=== PATIENT | female | born 1975 | race Caucasian/White ===

== ENCOUNTER 2017-03-26 15:32 | Emergency (ER) | payer OTHER, MEDICAID ==
--- NOTE | ~2017-03-26 | CT4 ---
[facility] A Service of [facility] RADIOLOGY TEXT RESULTS PATIENT: STEWART MORALES LOCATION: SED : 77 UNIT #: [id number] AGE: [address]: Esau Wilkins MD SEX: F ORDER DR: [id number] [place] [id number] MR#: [id number] Acc #: [id number] NAME: STEWART MORALES. : 1975 SEX: F STUDY DATE/TIME: 03/26/2017 15:44 UNIT: SED ROOM: STUDY DESCRIPTION: CT Abd and Pelv Wo Cont Attending Physician: Esau Wilkins M.D. Ordering Physician: Esau Wilkins M.D. Primary Care Physician: Sapna Pruitt M.D. MEDICAL IMAGING REPORT This report is preliminary unless electronic signature is present. EXAM CT scan of the abdomen and pelvis without contrast. DATE OF EXAM 03/26/2017 HISTORY Bilateral flank pain, kidney pain with nausea and vomiting beginning this morning. Diabetes. History of kidney stones. Evaluate for obstructing renal calculus. TECHNIQUE Spiral CT was performed through the abdomen and pelvis without oral or intravenous contrast administration using renal stone protocol. This CT exam was performed with one or more of the following radiation dose reduction techniques: automatic exposure control, adjustment of mA and/or kV according to patient size, and iterative reconstruction. FINDINGS ABDOMEN: There is no obstructing renal or ureteral calculus. Multiple nonobstructing renal stones are seen bilaterally. The liver, spleen, pancreas, gallbladder and biliary tree and adrenal glands are normal. PELVIS FINDINGS: The gut, mesenteric and ghazala structures are normal. There is no free fluid in the abdomen or pelvis. IMPRESSION 1. No obstructing renal or ureteral calculus. 2. Multiple nonobstructing renal stones bilaterally. Dictated by... Cayden Lemon M.D. [facility] A Service of [facility] RADIOLOGY TEXT RESULTS PATIENT: STEWART MORALES LOCATION: SED : 77 UNIT #: [id number] AGE: [address]: Esau Wilkins MD SEX: F ORDER DR: THIS IS AN ELECTRONICALLY VERIFIED REPORT Cayden Lemon M.D. at 03/27/2017 3:16 PM [facility]/yolis TD: 03/26/2017 19:35 JOB #: [id number] MEDICAL IMAGING REPORT Page 1 of 1
[2017-03-26 15:31] LABS: URINE SOURCE CLEAN CATCH
[~2017-03-26 15:32] MED LIST: ADDERALL XR 3030 M2 PO; ADDERALL XR20 MG PO; AUGMENTIN PO; BACTRIM DS TABL1 TA1 PO; BENTYL20 MG PO; CIPRO PO; COLACE PO; DIFLUCAN PO; DULCOLAX5 MG PO; HUMALOG100 U/M1 SQ; HUMALOG100 U/ML; KEPPRA500 M2 PO; LANTUS100 U/ML SQ; LANTUS100 U/ML SUBQ; LEVEMIR SUBQ; LINZESS145 MCG PO; LOMOTIL WHITE2.5 MG PO; MOBIC PO; NEURONTIN PO; NEURONTIN800 MG; NEURONTIN800 MG DOB; NEURONTIN800 MG PO; NITROFURANTOIN100 M3 PO; NORCO 7.5-3251 EACH PO; NOVOLOG100 U/M1; NOVOLOG100 U/ML; NOVOLOG100 UNITS/ SUBQ; PHENAZOPYRIDIN100 M1 PO; PHENERGAN25 M1 PO; TYLENOL325 M1 PO; VOLTAREN50 MG PO; ZOFRAN PO
[2017-03-26 15:36] LABS: BASOPHIL% 0.3 % (0-2.5); EOSINOPHIL% 0.3 % (0.0-7.0); HEMATOCRIT 40.9 % (35.0-45.0); HEMOGLOBIN 13.8 gm/dL (12.0-16.0); LYMPHOCYTE# 1.3 X10e3 (1.0-3.5); LYMPHOCYTE% 11.8 % (17.0-45.0); MEAN CELL VOLUME 90.4 FL (83-96); MEAN CORPUSCULAR HEMOGLOBIN 30.5 PG (28-34); MEAN CORPUSCULAR HGB CONC 33.7 g/dL (30-36); MEAN PLATELET VOLUME 9.5 FL (6.5-11.5); MONOCYTE# 0.4 X10e3 (0-1.0); MONOCYTE% 3.6 % (3.0-12.0); NEUTROPHIL# 9.1 X10e3 (1.5-7.1); PLATELET COUNT 279 X10e3 (140-420); RED BLOOD COUNT 4.52 X10e (3.90-5.30); RED CELL DISTRIBUTION WIDTH 13.1 % (11.0-15.5); WHITE BLOOD COUNT 10.8 X10e3 (4.0-10.5)
[2017-03-26 15:37] LABS: URINE APPEARANCE CLOUDY; URINE BILIRUBIN NEG (NEG); URINE BLOOD 2+ (NEG); URINE COLOR YELLOW; URINE GLUCOSE NEG (NORM); URINE KETONE NEG (NEG); URINE LEUKOCYTE ESTERASE 3+ (NEG); URINE NITRATE POS (NEG); URINE PH 8.5 (5-8); URINE PROTEIN 2+ (NEG)
[2017-03-26 15:40] LABS: MICRO INDICATED? YES
[2017-03-26 15:41] LABS: DIFF IND NO
[2017-03-26 15:47] LABS: ALBUMIN SERUM 4.1 g/dL (3.5-5.0); BILIRUBIN, DIRECT 0.2 mg/dL (0.0-0.2); BILIRUBIN,INDIRECT 0.7 mg/dL (0.0-0.9); BILIRUBIN,TOTAL 0.9 mg/dL (0.2-2.0); BUN/CREATININE RATIO 21.25; CALCIUM SERUM 9.8 mg/dL (8.4-10.2); CREATININE SERUM 0.8 mg/dL (0.6-1.4); POTASSIUM 3.7 mmol/L (3.5-5.1); PROTEIN TOTAL SERUM 7.9 g/dL (6.0-8.3)
[2017-03-26 15:51] LABS: URINE TRANSITIONAL EPI CELLS MODERATE /[HPF]
[2017-03-26 15:52] LABS: CULTURE INDICATED? YES; URINE BACTERIA 2+ (NEG); URINE WBC 200-300 /[HPF] (0-5)
== END 2017-03-26 16:45 | disposition home or self-care (01) ==
LOC: SED 15:32
PROVIDERS: Emergency Medicine
DX: N39.0 Urinary tract infection, site not specified (principal); E11.9 Type 2 diabetes mellitus without complications; Z79.4 Long term (current) use of insulin; Z87.442 Personal history of urinary calculi; Z79.899 Other long term (current) drug therapy
CPT/HCPCS: 36415; 74176; 80048; 80076; 81003; 83690; 84703; 85025; 87086; 87088; 87186; 96361; 96374; 96375; 99284; J1885; J2405

== ENCOUNTER 2017-07-03 10:54 | Inpatient (IN) | payer OTHER ==
[~2017-07-03] VITALS: Ht 165.1 cm; Wt 62.5 kg
--- NOTE | ~2017-07-03 | CO ---
Unit #: [id number] #: [id number] Patient: STEWART MORALES [id number] [address] [address] [id number] I MR#: [id number] NAME: STEWART MORALES. ROOM: [facility] Age: 41 Sex: F Admission Date: 07/03/2017 : 1975 Attending Physician: Danica Francis M.D. Primary Care Physician: Sapna Pruitt M.D. Consultation Date: 07/04/2017 CONSULTATION REPORT REASON FOR CONSULTATION Management of diabetes, ketoacidosis. HISTORY OF PRESENT ILLNESS This is a 41-year-old white female who has a history of type 1 diabetes mellitus for several years. She is on multiple daily injections. She reports that she started having some nausea and vomiting and got sick to the stomach on Tuesday. Blood sugars were running very high. On arriving in the emergency room she was found to have blood sugar of 792 with hyponatremia, hyperkalemia and severe metabolic acidosis. She did have positive ketones. She was started on IV hydration and insulin drip and was transferred to the unit. I was asked to see the patient. PAST MEDICAL HISTORY See history of present illness. PAST SURGICAL HISTORY 1. . 2. Knee surgery. 3. Hand surgery. SOCIAL HISTORY The patient lives at home. Declines tobacco and alcohol. FAMILY HISTORY Noncontributory. ALLERGIES No known drug allergies. HOME MEDICATIONS 1. Adderall XR 20 mg twice a day. 2. NovoLog one unit 10 g carbohydrates plus 1 unit for every 10 mg blood sugars above 240. 3. Neurontin 800 mg three times a day. 4. Levemir 30 units every morning and 35 units every evening. REVIEW OF SYSTEMS The patient reports she is still having some nausea, very tired and worn out. She has no diarrhea. No fever or chills. No chest pain or palpitations. She denies any history of frequency or dysuria. PHYSICAL EXAMINATION GENERAL: She is lying comfortably, in no acute distress. She looks very Unit #: [id number] #: [id number] Patient: STEWART MORALES weak and lethargic. VITALS: Temperature 99.2, pulse 90, blood pressure 130/74. HEENT: Extraocular muscles intact. Pupils equal and reactive to light. NECK: Supple. No thyromegaly noted. CHEST: Good air entry. HEART: Regular rate and rhythm. No murmurs. ABDOMEN: Soft and nontender. Bowel sounds positive. EXTREMITIES: No edema noted. NEUROLOGIC: Nonfocal. DIAGNOSTIC STUDIES LABORATORY: Reviewed. Current labs are creatinine 0.7, sodium 136, potassium 3.3, CO2 19, calcium 8.3, phos 1.2, albumin 4.4. ASSESSMENT 1. Diabetes, ketoacidosis, improved. 2. Hypokalemia. 3. Hypophosphatemia. 4. Acute kidney injury, resolved. 5. Dehydration, improved. PLAN Will start the patient on Levemir 30 units 1 dose now, followed by 15 units subcutaneous b.i.d. Discontinue insulin drip. Advance diet as tolerated. Accu-Cheks q.4 h. Will continue IV fluids today. Discontinue IV fluids in the morning if the patient tolerates her consistent carb diet. Replace potassium and phosphorus with K-phos. Continue magnesium and potassium protocol per ICU. Will continue to follow the patient for further management. Dictated by... Juan Keene/stefania TD: 07/05/2017 08:45 JOB #: [id number] CONSULTATION REPORT Page 1 of 1 X Omega Colon MD CONSULTATION REPORT
--- NOTE | ~2017-07-03 | DS ---
Unit #: [id number] #: [id number] Patient: STEWART MORALES [id number] [address] [address] [id number] I MR#: [id number] NAME: STEWART MORALES. ROOM: 220 Age: 41 Sex: F Admission Date: 07/03/2017 : 1975 Discharge Date: 07/06/2017 Attending Physician: Danica Francis M.D. Primary Care Physician: Sapna Pruitt M.D. DISCHARGE SUMMARY ADMISSION DIAGNOSES 1. Diabetic ketoacidosis. 2. History of attention deficit hyperactivity disorder. 3. Insulin dependent diabetes. 4. History of multiple admissions for diabetic ketoacidosis previously. DISCHARGE DIAGNOSES 1. Diabetic ketoacidosis, resolved. 2. History of attention deficit hyperactivity disorder. 3. Insulin dependent diabetes. 4. History of multiple admissions for diabetic ketoacidosis previously. CONSULTANTS Endocrinology, Dr. Colon. LABS AND DIAGNOSTIC PROCEDURES Chest x-ray was ordered on admission, which showed no acute findings. HISTORY OF PRESENT HOSPITAL STAY Please refer to H and P done by my colleague for initial presentation of this female. ACTIVE PROBLEMS DIAGNOSED DKA: Was admitted to ICU. Started on DKA protocol with IV fluids and aggressive rehydration. Status post evaluation per endocrinology. DKA resolved. GAP closed. Tolerates p.o. diet without any problems. Transitioned to subcu insulin regime per endocrinology, stable to be discharged. History of insulin dependent diabetes. History of ADHD: Continue home Adderall. DISCHARGE MEDICATIONS 1. Tylenol p.r.n. 2. Adderall 20 mg p.o. b.i.d. 3. Neurontin 800 mg t.i.d. 4. Levemir 20 units subcu b.i.d. 5. NovoLog 5 units subcu t.i.d. with meals. 6. Sliding scale insulin. Patient confirmed that she does have insulin at home. FOLLOWUP She is able to follow up with the primary care physician, Dr. Pruitt in the Unit #: [id number] #: [id number] Patient: STEWART MORALES next day or so, as well as followup with Dr. Colon as an outpatient. Dictated by... Juan Longo/ts TD: 07/07/2017 06:25 JOB #: [id number] DISCHARGE SUMMARY Page 1 of 1 X Eliud Ashby MD DISCHARGE SUMMARY
--- NOTE | ~2017-07-03 | HP ---
Unit #: [id number] #: [id number] Patient: STEWART MORALES [id number] [address] [address] [id number] I MR#: [id number] NAME: STEWART MORALES. ROOM: [facility] Age: 41 Sex: F Admission Date: 07/03/2017 : 1975 Attending Physician: Danica Francis M.D. Primary Care Physician: Sapna Pruitt M.D. HISTORY AND PHYSICAL CHIEF COMPLAINT Nausea, vomiting. HISTORY OF PRESENTING ILLNESS Ms. Zendejas is a 41-year-old female who has a history of diabetes mellitus 1, has been admitted a few times for DKA and was doing well until Tuesday when she started having nausea, vomiting. She could not hold anything in. She could not take her medications. Her blood sugars have been running very high. She came to ER and was admitted to [facility] in ICU for diabetic ketoacidosis. The patient does not complain of chest pain. She does not complain of fever, chills or rigors. She does not complain of abdominal pain, she does not complain of any diarrhea. PAST MEDICAL HISTORY 1. History of diabetes mellitus type 1. 2. Multiple DKA in the past. 3. History of GERD. 4. ADHD. PAST SURGICAL HISTORY 1. History of . 2. History of knee surgery. 3. History of hand surgery. ALLERGIES No known drug allergies. SOCIAL HISTORY The patient lives at home. Denies any tobacco, alcohol or drug abuse. FAMILY HISTORY Unremarkable. HOME MEDICATIONS 1. Adderall XR 20 mg twice a day. 2. NovoLog one unit 10 more than 240. 3. Neurontin 800 mg three times a day. 4. Tylenol 650 q.4 p.r.n. 5. Levemir 30 units every morning and 35 units every evening. REVIEW OF SYMPTOMS As per history of presenting illness. PHYSICAL EXAMINATION Unit #: [id number] #: [id number] Patient: STEWART MORALES GENERAL: The patient is lying in ICU bed-20, seems to be stable. She is feeling nauseous. VITAL SIGNS: Blood pressure is 110/75, respiratory rate 15, pulse is 111, temperature 98.5, oxygen saturation is 100%. HEENT: Head is normocephalic. Eye movements are normal. Mucous membranes still seems to be dry. CHEST: Fair air entry, no additional sounds. CVS: S1, S2 positive. Regular rhythm. Tachycardia. ABDOMEN: Soft. No tenderness. EXTREMITIES: Negative edema. SIDEWALK INSPECTOR: Patient is awake, alert, oriented x3. No focal neurological deficit. DIAGNOSTIC STUDIES LABORATORY: Lab workup on admission - WBC 9.1, hemoglobin 14.6, hematocrit 46.1 and platelet count of 437. test was normal. Sodium 126, potassium 5.4, bicarb 11, blood glucose 792, BUN 27, creatinine 1.4, alkaline phos. 105. Urinalysis shows 3+ ketone. Troponin was less than 0.05, lactic acid 3.4. Urine drug screen is positive for amphetamines. Arterial blood gas was done which shows pH 7.13, pCO2 28, bicarb 8.9, pO2 50. ASSESSMENT AND PLAN Patient is being admitted to ICU with: 1. Diabetic ketoacidosis. 2. Intractable nausea and vomiting. 3. Acute renal insufficiency, most likely secondary to dehydration. 4. Hyperkalemia. 5. Hyponatremia. 6. Diabetes mellitus type 1. 7. History of ADHD. Plan is admit to ICU. Insulin drip has been started which is diabetic ketoacidosis protocol. Dr. Colon will be consulted. IV Zofran on p.r.n. basis. IV Protonix 40 mg daily. DVT prophylaxis with Lovenox has been started. Home medications have been reviewed. Labs will be repeated tomorrow morning. Again, plan of care has been discussed with patient. Dictated by Juan Ellis TD: 07/04/2017 10:58 Unit #: [id number] #: [id number] Patient: STEWART MORALES JOB #: [id number] HISTORY AND PHYSICAL Page 1 of 1 X Danica Francis MD HISTORY AND PHYSICAL
--- NOTE | ~2017-07-03 | EKG ---
PATIENT: STEWART MORALES UNIT #: [id number] Ventricular Rate: 118 BPM Atrial Rate: 118 BPM P-R Interval: 138 ms QRS Duration: 94 ms Q-T Interval: 324 ms QTC Calculation(Bezet): 454 ms P [place]: 72 degrees Calculated R [place]: 71 degrees Calculated T [place]: 42 degrees Diagnosis Line: Poor data quality, interpretation may be Diagnosis Line: adversely affected Diagnosis Line: Sinus tachycardia Diagnosis Line: Otherwise normal ECG Diagnosis Line: Diagnosis Line: Confirmed by ANNITA MILLAN MD ([id number]) on 07/04/2017 Diagnosis Line: 6:22:42 PM INTERPRETING MD: MONTY BRUNER
--- NOTE | ~2017-07-03 | A ---
[facility] Nutrition Therapy DATE: 07/04/17 Patient: STEWART MORALES Physician: ROSCOE Address: [address] Room/Bed: [address], Zip: [place] [address] Admit Date: 07/03/17 Date of : [birth year] Height: 5 5 Weight: 138 63 NUTRITIONAL ASSESSMENT: REASON: DKA, diabetic teaching consult, NPO in ICU 41 yo female admitted for DKA, n/v PMH: Type 1 DM, GERD, DKA Anthropometrics: Ht: 5'5" Wt: 63 kg BMI: 23.1 Labs: Ca++ 8.3 Phos 2.2 Accuchecks 93-183 Meds: Novolin, MgSO4, KCl, D5%, D50%, zofran, protonix I/O & Bowel function: 3823/1750, last BM not documented/ unknown Skin Integrity: no skin breakdown or edema noted Diet: NPO Assessment: Chart reviewed, events noted. 41 yo female admitted for DKA, n/v on insulin drip and NPO d/t DKA protocol. Pt has been seen by [facility] RDs in the past for DKA nutrition assessment and diet education. Per previous admission notes, the pt has had DM for most of her life, and is very familiar with carbohydrate counting. RN reports that the pt did not get her insulin medication filled, which is likely why she was admitted with DKA. RD spoke with the pt at bedside. Pt was lethargic, but was able to report to RD that she was thirsty, with fair appetite requesting clear liquids. Pt denies having any recent weight loss, and nodded her head yes when RD asked if she has been following a consistent carbohydrate diet. RD offered review of DM diet information and printed materials, and pt denied the need for any verbal education or materials. Please see recommendations below. Dx: Impaired glycemic control RT possibly noncompliance with DM medication AEB DKA, n/v. Intervention: 1. Advance to consistent carbohydrate diet once feasible Monitoring, Evaluation and Goals: 1. Oral intake; tolerate diet advancement once feasible 2. Improve labs; Phos, glucose 3. GI; promote regular GI function Recommendations: 1. Once medically feasible, advance the pt to a clear liquid diet as tolerated. If the pt [facility] Nutrition Therapy DATE: 07/04/17 Patient: STEWART Alma MORALES Physician: ROSCOE Address: [address] Room/Bed: [address], Zip: [place] [address] Admit Date: 07/03/17 Date of : [birth year] Height: 5 5 Weight: 138 63 tolerates clear liquids without symptoms of intolernace, advance to a consistent carbohydrate diet. 2. Once advanced to consistent carbohydrate diet, order Glucerna chocolate once daily. 3. Encourage consistent carbohydrate diet compliance. Pt is at mild-moderate nutritional risk. RD will follow up per protocol. Respectfully, LAURENT HELTON RD, LD Food and Nutritional Services [facility] cc: client file
--- NOTE | ~2017-07-03 | CR72 ---
[facility] A Service of [facility] RADIOLOGY TEXT RESULTS PATIENT: STEWART MORALES LOCATION: [place] [id number] : [birth year] UNIT #: [id number] AGE: [address]: Danica Francis MD SEX: F ORDER DR: [id number] [facility] [address] [place], [place] [address] [id number] I MR#: [id number] #: [id number] NAME: STEWART MORALES. : 1975 SEX: F STUDY DATE/TIME: 07/03/2017 16:44 UNIT: [facility] ROOM: [facility] STUDY DESCRIPTION: CR Chest Single View Portable Attending Physician: Jose Escobedo M.D. Ordering Physician: Jose Escobedo M.D. Primary Care Physician: Sapna Pruitt M.D. MEDICAL IMAGING REPORT This report is preliminary unless electronic signature is present EXAM Single view chest INDICATION Diabetic acidosis. Shortness of air. Mild congestion. FINDINGS Single portable AP view of the chest compared to 12/16/2015. Heart and mediastinal contours normal. Lungs are clear. IMPRESSION No acute cardiopulmonary findings. Dictated by... Jonathon Parada M.D. THIS IS AN ELECTRONICALLY VERIFIED REPORT Jonathon Parada M.D. at 07/05/2017 10:30 AM RPMarie/audrey TD: 07/04/2017 07:37 JOB #: [id number] MEDICAL IMAGING REPORT Page 1 of 1 COPY
--- NOTE | ~2017-07-03 | EKG ---
PATIENT: STEWART MORALES UNIT #: [id number] Ventricular Rate: 115 BPM Atrial Rate: 115 BPM P-R Interval: 124 ms QRS Duration: 88 ms Q-T Interval: 320 ms QTC Calculation(Bezet): 442 ms P [place]: 80 degrees Calculated R [place]: 80 degrees Calculated T [place]: 61 degrees Diagnosis Line: Sinus tachycardia Diagnosis Line: Otherwise normal ECG Diagnosis Line: When compared with ECG of 18-DEC-2015 14:07, Diagnosis Line: ST no longer elevated in Inferior leads Diagnosis Line: Confirmed by CHANDLER BENÍTEZ MD ([id number]) on Diagnosis Line: 07/04/2017 3:09:40 PM INTERPRETING MD: JACKELIN BRUNER
[2017-07-03 11:39] LABS: BASOPHIL# 0.1 X10e3 (0-0.3); BASOPHIL% 0.7 % (0-2.5); HEMATOCRIT 46.1 % (35.0-45.0); HEMOGLOBIN 14.6 gm/dL (12.0-16.0); LYMPHOCYTE# 1.6 X10e3 (1.0-3.5); LYMPHOCYTE% 17.5 % (17.0-45.0); MEAN CELL VOLUME 97.3 FL (83-96); MEAN CORPUSCULAR HEMOGLOBIN 30.9 PG (28-34); MEAN CORPUSCULAR HGB CONC 31.7 g/dL (30-36); MEAN PLATELET VOLUME 9.6 FL (6.5-11.5); MONOCYTE# 0.3 X10e3 (0-1.0); MONOCYTE% 3.6 % (3.0-12.0); NEUTROPHIL# 7.1 X10e3 (1.5-7.1); NEUTROPHIL% 78.2 % (40-75); PLATELET COUNT 437 X10e3 (140-420); RED BLOOD COUNT 4.74 X10e (3.90-5.30); RED CELL DISTRIBUTION WIDTH 13.6 % (11.0-15.5); WHITE BLOOD COUNT 9.1 X10e3 (4.0-10.5)
[2017-07-03 11:41] LABS: DIFF IND NO
[2017-07-03 11:53] LABS: ALBUMIN SERUM 4.4 g/dL (3.5-5.0); ALKALINE PHOSPHATASE 105 U/L (32-92); ALT (SGPT) 34 U/L (10-40); AMYLASE 8 U/L (0-46); AST (SGOT) 25 U/L (10-42); BILIRUBIN,TOTAL 1.7 mg/dL (0.2-2.0); BLOOD UREA NITROGEN 27 mg/dL (9-23); BUN/CREATININE RATIO 19.28; CALCIUM SERUM 9.5 mg/dL (8.4-10.2); CARBON DIOXIDE 11 mmol/L (22-31); CHLORIDE 88 mmol/L (100-111); CREATININE SERUM 1.4 mg/dL (0.6-1.4); GLOM FILT RATE Estimated 47.2 mL/min (>60); LIPASE 14 U/L (22-51); POTASSIUM 5.4 mmol/L (3.5-5.1); PROTEIN TOTAL SERUM 8.6 g/dL (6.0-8.3); SODIUM 126 mmol/L (135-145)
[2017-07-03 12:09] LABS: ALCOHOL BLOOD <5 mg/dL (0); BILIRUBIN, DIRECT <0.1 mg/dL (0.0-0.2); BILIRUBIN,INDIRECT 1.6 mg/dL (0.0-0.9)
[2017-07-03 12:10] LABS: GLUCOSE FASTING 792 mg/dL (70-110)
[2017-07-03 12:23] LABS: URINE SOURCE CLEAN CATCH
[2017-07-03 12:25] LABS: URINE APPEARANCE CLEAR; URINE BILIRUBIN NEG (NEG); URINE BLOOD NEG (NEG); URINE COLOR YELLOW; URINE GLUCOSE 300 MG/DL (NORM); URINE LEUKOCYTE ESTERASE NEG (NEG); URINE NITRATE NEG (NEG); URINE PH 5.5 (5-8); URINE PROTEIN NEG (NEG); URINE UROBILINOGEN 0.2 MG/DL (NORM)
[2017-07-03 12:26] LABS: URINE KETONE 3+ (NEG)
[2017-07-03 12:28] LABS: MICRO INDICATED? NO
[2017-07-03 12:29] LABS: POC - CKMB 1.1 ng/mL (0.0-7.9); POC - TROPONIN <0.05 ng/mL (<=0.05)
[2017-07-03 12:37] LABS: ARTERIAL BLD GAS O2 SATURATION 74.6 % (90.0-100.0); ARTERIAL BLOOD GAS CARBOXY HB 1.9 %sat (0.0-9.0); ARTERIAL BLOOD GAS HCO3 8.9 mmol/L
[2017-07-03 12:37] LABS: AMPHETAMINE POS (NEG); BARBITURATES NEG (NEG); BENZODIAZEPINES NEG (NEG); COCAINE NEG (NEG); MARIJUANA NEG (NEG); OPIATES NEG (NEG); TRICYCLIC ANTIDEPRESSANTS NEG (NEG); U METHADONE NEG (NEG)
[2017-07-03 12:40] LABS: ARTERIAL BLOOD GAS MET HB -0.9 %sat (0.0-2.0); ARTERIAL DRAW? NO
[2017-07-03 18:31] LABS: CALCIUM SERUM 8.8 mg/dL (8.4-10.2)
[2017-07-03 18:32] LABS: POTASSIUM 5.8 mmol/L (3.5-5.1)
[2017-07-03 18:45] LABS: BUN/CREATININE RATIO 24.16; CREATININE SERUM 1.2 mg/dL (0.6-1.4); GLOM FILT RATE Estimated 56.9 mL/min (>60); PHOSPHOROUS 4.8 mg/dL (2.5-4.6)
[2017-07-03 20:45] LABS: BUN/CREATININE RATIO 21.66; CALCIUM SERUM 8.4 mg/dL (8.4-10.2); CREATININE SERUM 1.2 mg/dL (0.6-1.4); GLOM FILT RATE Estimated 56.9 mL/min (>60); POTASSIUM 4.9 mmol/L (3.5-5.1)
[2017-07-03 21:00] LABS: AMYLASE 19 U/L (0-46); LIPASE 25 U/L (22-51)
[2017-07-04 01:02] LABS: BUN/CREATININE RATIO 21.81; CALCIUM SERUM 8.4 mg/dL (8.4-10.2); CREATININE SERUM 1.1 mg/dL (0.6-1.4); GLOM FILT RATE Estimated 63.2 mL/min (>60); MAGNESIUM 2.1 mg/dL (1.6-3.0); POTASSIUM 4.7 mmol/L (3.5-5.1)
[2017-07-04 06:02] LABS: CALCIUM SERUM 8.3 mg/dL (8.4-10.2); GLOM FILT RATE Estimated 70.9 mL/min (>60); PHOSPHOROUS 2.2 mg/dL (2.5-4.6); POTASSIUM 4.3 mmol/L (3.5-5.1)
[2017-07-04 11:11] LABS: BUN/CREATININE RATIO 23.75; CALCIUM SERUM 8.3 mg/dL (8.4-10.2); CREATININE SERUM 0.8 mg/dL (0.6-1.4); POTASSIUM 3.6 mmol/L (3.5-5.1)
[2017-07-04 16:23] LABS: BUN/CREATININE RATIO 25.71; CALCIUM SERUM 8.3 mg/dL (8.4-10.2); CREATININE SERUM 0.7 mg/dL (0.6-1.4); GLOM FILT RATE Estimated 109.1 mL/min (>60); PHOSPHOROUS 1.2 mg/dL (2.5-4.6); POTASSIUM 3.3 mmol/L (3.5-5.1)
[2017-07-04 23:05] LABS: BUN/CREATININE RATIO 21.42; CALCIUM SERUM 8.1 mg/dL (8.4-10.2); CREATININE SERUM 0.7 mg/dL (0.6-1.4); GLOM FILT RATE Estimated 109.1 mL/min (>60); POTASSIUM 3.7 mmol/L (3.5-5.1)
[2017-07-05 04:40] LABS: BASOPHIL% 0.2 % (0-2.5); EOSINOPHIL% 0.1 % (0.0-7.0); HEMATOCRIT 37.8 % (35.0-45.0); HEMOGLOBIN 11.9 gm/dL (12.0-16.0); LYMPHOCYTE# 2.1 X10e3 (1.0-3.5); LYMPHOCYTE% 30.2 % (17.0-45.0); MEAN CORPUSCULAR HEMOGLOBIN 29.3 PG (28-34); MEAN CORPUSCULAR HGB CONC 31.5 g/dL (30-36); MEAN PLATELET VOLUME 8.4 FL (6.5-11.5); MONOCYTE# 0.5 X10e3 (0-1.0); MONOCYTE% 7.2 % (3.0-12.0); NEUTROPHIL# 4.3 X10e3 (1.5-7.1); NEUTROPHIL% 62.3 % (40-75); PLATELET COUNT 294 X10e3 (140-420); RED BLOOD COUNT 4.06 X10e (3.90-5.30); RED CELL DISTRIBUTION WIDTH 13.6 % (11.0-15.5); WHITE BLOOD COUNT 6.9 X10e3 (4.0-10.5)
[2017-07-05 04:46] LABS: DIFF IND NO
[2017-07-05 05:03] LABS: CALCIUM SERUM 7.9 mg/dL (8.4-10.2); CREATININE SERUM 0.5 mg/dL (0.6-1.4); GLOM FILT RATE Estimated 121.9 mL/min (>60); MAGNESIUM 1.9 mg/dL (1.6-3.0); PHOSPHOROUS 2.8 mg/dL (2.5-4.6); POTASSIUM 3.5 mmol/L (3.5-5.1)
[2017-07-06 06:05] LABS: CALCIUM SERUM 8.6 mg/dL (8.4-10.2); CREATININE SERUM 0.5 mg/dL (0.6-1.4); GLOM FILT RATE Estimated 121.9 mL/min (>60); MAGNESIUM 2.1 mg/dL (1.6-3.0); POTASSIUM 4.3 mmol/L (3.5-5.1)
== END 2017-07-06 20:48 | disposition home or self-care (01) | DRG 638 ==
LOC: SED 10:54 → CICCU3 13:11 → CEDOF 13:11 → C3A PCU 15:50 → CICCU3 16:01 → C3A PCU 16:01 → CICCU3 16:20 → CEDOF 16:20 → C3A PCU 16:20 → C2A 16:20
PROVIDERS: Internal Medicine; Physician Assistant Medical; Student in an Organized Health Care Education/Training Program
DX: E13.10 Other specified diabetes mellitus with ketoacidosis without coma (principal); E87.1 Hypo-osmolality and hyponatremia; N17.9 Acute kidney failure, unspecified; E87.5 Hyperkalemia; E83.39 Other disorders of phosphorus metabolism; F90.9 Attention-deficit hyperactivity disorder, unspecified type; E86.0 Dehydration; Z79.4 Long term (current) use of insulin; K21.9 Gastro-esophageal reflux disease without esophagitis
CPT/HCPCS: 51701; 71010; 80048; 80076; 80307; 81003; 82150; 82553; 82803; 82947; 83036; 83605; 83690; 83735; 84100; 84132; 84484; 84703; 85025; 87040; 93005; 96374; 99291; C9113; G0480; J1650; J1815; J2405; J3475